=== PATIENT | female | born 1950 | race Caucasian/White ===

== ENCOUNTER 2023-01-20 10:03 | Emergency (ER) | payer MEDICARE, OTHER ==
[~2023-01-20] VITALS: Ht 165.1 cm; Wt 99.8 kg
[2023-01-20 10:06] VITALS: TEMP 98.4
[2023-01-20] MEDS ORDERED: CHOL100043 PO (10:41)
[2023-01-20] MEDS ORDERED: LOSA100T31 PO (10:41)
[2023-01-20] MEDS ORDERED: HYDR12.55 PO (10:41)
[2023-01-20] MEDS ORDERED: PROP20TA19 PO (10:41)
[2023-01-20] MEDS ORDERED: CELE-85 PO (10:41)
[2023-01-20] MEDS ORDERED: CELE200C PO (10:41)
[2023-01-20] MEDS ORDERED: PANT40TA49 PO (10:41)
[2023-01-20] MEDS ORDERED: BUSP15TA3 PO (10:41)
[2023-01-20 10:43] LABS: CARBON DIOXIDE 27 mmol/L (21-32); CHLORIDE 103 mmol/L (98-107); CREATININE 0.7 mg/dL (0.6-1.3); GLUCOSE 114 mg/dL (74-106); POTASSIUM 3.9 mmol/L (3.5-5.1); SODIUM SERUM 139 mmol/L (136-145); UREA NITROGEN, BLOOD 28 mg/dL (7-18)
[2023-01-20 10:58] LABS: BASOPHILS # (AUTO) 0.1 K/uL (0.0-0.2); BASOPHILS % (AUTO) 0.5 % (0.0-2.0); EOSINOPHILS # (AUTO) 0.1 K/uL (0.0-0.7); EOSINOPHILS % (AUTO) 0.8 % (0.0-6.0); HEMATOCRIT 42 % (33-45); LYMPHOCYTES # (AUTO) 1.3 K/uL (0.8-4.8); LYMPHOCYTES % (AUTO) 10.5 % (20.0-44.0); MEAN CORPUSCULAR HEMOGLOBIN 29 PG (26.0-33.0); MEAN CORPUSCULAR HGB CONC 33 g/dl (31.0-36.0); MEAN CORPUSCULAR VOLUME 87 fL (82-100); MONOCYTES # (AUTO) 1.2 K/uL (0.1-1.30); MONOCYTES % (AUTO) 9.3 % (2.0-12.0); NEUTROPHILS # (AUTO) 9.8 K/uL (1.8-8.9); NEUTROPHILS % (AUTO) 78.9 % (43.0-81.0); PLATELET COUNT (AUTO) 258 K/uL (150-450); RED BLOOD CELL COUNT(AUTO) 4.82 MIL/uL (4.0-5.2); RED CELL DISTRIBUTION WIDTH 13.4 % (11.5-15.0); WHITE BLOOD COUNT (AUTO) 12.4 K/uL (4.3-11.0)
[2023-01-20 14:08] VITALS: BP 142/90; O2SAT 96
== END 2023-01-20 14:09 | disposition home or self-care (01) ==
LOC: ER 10:03
DX: I49.8 Other specified cardiac arrhythmias (principal); R07.89 Other chest pain; R00.2 Palpitations; I10 Essential (primary) hypertension; Z88.8 Allergy status to other drugs, medicaments and biological substances
CPT/HCPCS: 36415; 71045-TC; 80048-TC; 84484-TC; 85025-TC